=== PATIENT | female | born 1985 | race Hispanic/Latino ===

== ENCOUNTER 2017-11-15 17:07 | Emergency (ER) | payer MEDICAID, OTHER ==
[2017-11-15] MEDS ORDERED: Ketorolac Tromethamine 30 MG/ML VIAL ONE (17:35)
[2017-11-15] MEDS ORDERED: diphenhydrAMINE 50 MG/ML VIAL ONE (17:35)
[2017-11-15] MEDS ORDERED: Metoclopramide HCl 10 MG/2 ML VIAL ONE (17:35)
== END 2017-11-15 19:01 | disposition home or self-care (01) ==
LOC: SCSER 17:07
DX: G43.709 Chronic migraine without aura, not intractable, without status migrainosus (principal); F41.9 Anxiety disorder, unspecified; F32.9 Major depressive disorder, single episode, unspecified; F17.210 Nicotine dependence, cigarettes, uncomplicated; Z79.899 Other long term (current) drug therapy
CPT/HCPCS: 96365; 96375; J1200; J1885; J2765

== ENCOUNTER 2018-03-02 16:24 | Emergency (ER) | payer OTHER ==
[2018-03-02] MEDS ORDERED: Ondansetron PF 4 MG/2 ML Vial ONE (16:55)
[2018-03-02] MEDS ORDERED: Morphine 4 MG/ML VIAL ONE (16:55)
[2018-03-02 16:58] LABS: Bilirubin Negative (Negative); Blood, Urine Trace (Negative); Clarity Clear (Clear); Glucose, Urine (Dipstick) Negative (Negative); Leukocyte Negative (Negative); Nitrite Negative (Negative); Protein, Urine (Dipstick) Negative (Neg-Trace); Urobilinogen 0.2 mg/dL (0.2-1.0)
[2018-03-02 17:02] LABS: #Eosinphils 0.2 thou/uL (0.0-0.7); #Lymphocytes 2.3 thou/uL (1.20-3.40); #Monocytes 0.4 thou/uL (0.11-0.59); #Neutrophils 4.6 thou/uL (1.40-6.50); %Basophils 0.4 % (0.0-1.0); %Eosinophils 2.4 % (0.0-10.0); %Lymphocytes 30.2 % (21.0-51.0); %Neutrophils 61.9 % (42.0-75.0); Hemoglobin 14.5 g/dL (12.0-16.0); Mean Corpuscular HGB CONC 35.7 g/dL (32.0-36.0); Mean Corpuscular Hemoglobin 32.7 pg (27.0-31.0); Mean Corpuscular Volume 91.6 fL (78.0-98.0); Mean Platelet Volume 7.4 fL (7.4-10.4); Platelet Count 228 thou/uL (130-400); RBC Distribution Width 10.3 % (11.5-14.5); Red Blood Cell (RBC) Count 4.44 mill/uL (4.20-5.40); White Blood Cell (WBC) Count 7.5 thou/uL (4.8-10.8)
[2018-03-02 17:05] LABS: Bacteria/HPF Rare-Few HPF (None Seen); RBC/HPF 0-3 HPF (0-3); WBC/HPF None Seen HPF (0-3)
[2018-03-02 17:08] LABS: BHCG - Serum Negative (NEGATIVE); Pregs Control Background? CLEAR/WHITE (CLR/WHITE); Pregs Control Bar Appear? YES (CONTROL BAR)
[2018-03-02 17:18] LABS: ALT (SGPT) 77 U/L (8-55); AST (SGOT) 40 U/L (5-34); Albumin 4.4 g/dL (3.5-5.0); Alkaline Phosphatase 92 U/L (40-150); Anion Gap 13 mmol/L (10-20); BUN (Urea Nitrogen) 12 mg/dL (7.0-18.7); Bilirubin, Total 0.3 mg/dL (0.2-1.2); Calc. Creatinine Clearance 0 mL/min (70-130); Calcium 9.4 mg/dL (7.8-10.44); Carbon Dioxide 23 mmol/L (22-29); Chloride 106 mmol/L (98-107); Estimated GFR-MDRD Greater than 90; Globulin 2.5 g/dL (2.4-3.5); Glucose 116 mg/dL (70-105); Lipase 33 U/L (8-78); Protein, Total 6.9 g/dL (6.0-8.3); Sodium 138 mmol/L (136-145)
--- NOTE | 2018-03-02 19:34 | CT ---
CT ABDOMEN AND PELVIS 03/02/18 COMPARISON: None. HISTORY: Left lateral mid abdominal pain radiating to the left flank and left lower quadrant. TECHNIQUE: Axial CT imaging at 5 mm intervals from lung bases through pubic symphysis without contrast. Coronal reformatted imaging obtained. FINDINGS: There is a linear area of increased density in the lingula suggesting scar/volume loss. The imaged lung bases are unremarkable otherwise. Lack of contrast limits assessment of the viscera, bowel, vascular structures and for lymphadenopathy. Cholecystectomy clips are present. No free intrap eritoneal air or fluid is evident. Limited assessment of the liver demonstrates hypodensity which may signify a degree of steatosis. Spleen, pancreas, adrenal glands, and kidneys demonstrate no acute fi ndings. There is no hydronephrosis or nephrolithiasis noted. There is no hydroureter on either side. There is no stone along the course of either ureter. There is descending colonic diverticulosis without evidence for diverticulitis. There is no evidence for bowel inflammatory change or obstruction. There is no evidence for appendici tis. Osseous structures demonstrate. No lytic or blastic bone lesion. No acute osseous abnormality. IMPRESSION: No evidence for nephrolithiasis or obstructive uropathy. POS: [facility]
== END 2018-03-02 18:00 | disposition home or self-care (01) ==
LOC: SCSER 16:24
DX: A08.4 Viral intestinal infection, unspecified (principal); G43.909 Migraine, unspecified, not intractable, without status migrainosus; F17.210 Nicotine dependence, cigarettes, uncomplicated; Z79.899 Other long term (current) drug therapy
CPT/HCPCS: 74176; 80053; 81003; 81015; 83605; 83690; 84703; 85025; 96361; 96374; 96375; J2270; J2405

== ENCOUNTER 2018-03-30 17:09 | Emergency (ER) | payer OTHER ==
--- NOTE | 2018-03-30 18:12 | RAD ---
TWO VIEWS OF THE CHEST: 03/30/18 COMPARISON: None. HISTORY: Sore throat and cough. FINDINGS: Two views of the chest show normal sized cardiomediastinal silhouette. There is no evidence of consol idation, mass, or pleural effusion. The bones are unremarkable. IMPRESSION: No evidence of acute cardiopulmonary disease. POS: [facility]
== END 2018-03-30 17:48 | disposition home or self-care (01) ==
LOC: SCSER 17:09
DX: J20.9 Acute bronchitis, unspecified (principal); G43.909 Migraine, unspecified, not intractable, without status migrainosus; F41.9 Anxiety disorder, unspecified; F32.9 Major depressive disorder, single episode, unspecified; F17.210 Nicotine dependence, cigarettes, uncomplicated
CPT/HCPCS: 71046

== ENCOUNTER 2018-04-15 10:03 | Emergency (ER) | payer OTHER ==
[2018-04-15] MEDS ORDERED: Bupivacaine 0.5% 10 ML VIAL ONE (10:22)
== END 2018-04-15 10:35 | disposition home or self-care (01) ==
LOC: SCSER 10:03
DX: K02.9 Dental caries, unspecified (principal); G43.909 Migraine, unspecified, not intractable, without status migrainosus; F17.210 Nicotine dependence, cigarettes, uncomplicated; Z79.899 Other long term (current) drug therapy
CPT/HCPCS: 64400; J3490

== ENCOUNTER 2018-06-10 18:29 | Emergency (ER) | payer OTHER, SELFPAY | END 2018-06-10 19:38 | disposition home or self-care (01) | LOC: SCSER 18:29 | DX: J02.9 Acute pharyngitis, unspecified (principal); J04.0 Acute laryngitis; B34.9 Viral infection, unspecified; G43.909 Migraine, unspecified, not intractable, without status migrainosus; F17.210 Nicotine dependence, cigarettes, uncomplicated; F41.9 Anxiety disorder, unspecified; F32.9 Major depressive disorder, single episode, unspecified; Z79.899 Other long term (current) drug therapy | CPT/HCPCS: 87804; 99283 ==